=== PATIENT | female | born 1960 | race Caucasian/White ===

== ENCOUNTER 2017-11-20 13:13 | Emergency (ER) | payer BC ==
[2017-11-20 13:35] VITALS: BP 158/70
[2017-11-20] MEDS ORDERED: Fluorescein Sod TOPICAL 0.6* 0.6 MG TEST OPHTHALMIC ONE (13:47)
[2017-11-20] MEDS ORDERED: Tetracaine 0.5% OPTH.SOL 4 ML* 1 DROP BTL LEFT EYE ONE (13:58)
[2017-11-20] MEDS ORDERED: Mupirocin 2% OINT* TUBE TOPICAL ONE (14:12)
--- NOTE | 2017-11-20 14:19 | UC ---
General HPI - HPI Summary HPI Summary: was mowing lawn and got something in the left eye, has been treating lesion on left wrist as a ring worm, getting worse. - History of Current Complaint Chief Complaint: UCEye Stated Complaint: LEFT EYE Time Seen by Provider: 11/20/17 13:51 Hx Obtained From: Patient Onset/Duration: Sudden Onset, Lasting Hours Timing: Constant Onset Severity: Mild Current Severity: Mild Pain Intensity: 2 - Allergy/Home Medications Allergies/Adverse Reactions: Allergies Allergy/AdvReac Type Severity Reaction Status Date / Time influenza virus vaccine, Allergy See Comment Verified 11/20/17 13:27 specific Penicillins Allergy Rash Verified 11/20/17 13:27 Home Medications: Home Medications Conjugated Estrogens VAG CM* [Premarin VAG CREAM*] 1 applic VAGINAL BEDTIME 12/01 [History Confirmed 11/20/17] Estrogen Patch WEEKLY 11/20/17 [History] Progesterone, Micronized [Progesterone] 100 mg PO DAILY 11/20/17 [History Confirmed 11/20/17] PMH/Surg Hx/FS Hx/Imm Hx Previously Healthy: Yes - Surgical History Surgical History: Yes Surgery Procedure, Year, and Place: colon resection - Family History Known Family History: Positive: Hypertension - Social History Alcohol Use: Occasionally Substance Use Type: None Smoking Status (MU): Former Smoker When Did the Patient Quit Smoking/Using Tobacco: 30 years ago Review of Systems Constitutional: Negative Skin: Other - round lesion Eyes: Drainage, Eye Redness, Photophobia ENT: Negative Respiratory: Negative Cardiovascular: Negative Gastrointestinal: Negative Genitourinary: Negative Motor: Negative Neurovascular: Negative Musculoskeletal: Negative Neurological: Negative Psychological: Negative Is Patient Immunocompromised?: No All Other Systems Reviewed And Are Negative: Yes Physical Exam Triage Information Reviewed: Yes Appearance: Well-Appearing, Well-Nourished, Pain Distress Vital Signs: Initial Vital Signs Temp 99.2 F 11/20/17 13:30 Pulse 45 11/20/17 13:30 Resp 14 11/20/17 13:30 BP 158/70 11/20/17 13:30 Pulse Ox 99 11/20/17 13:30 Vital Signs Reviewed: Yes Eyes: Positive: Conjunctiva Inflamed, Discharge ENT Exam: Normal Dental Exam: Normal Neck exam: Normal Respiratory Exam: Normal Respiratory: Positive: Chest non-tender, Lungs clear, Normal breath sounds Cardiovascular Exam: Normal Cardiovascular: Positive: RRR, No Murmur, Pulses Normal Abdominal Exam: Normal Bowel Sounds: Positive: Present Musculoskeletal Exam: Normal Neurological Exam: Normal Psychological Exam: Normal Skin: Positive: significant lesion(s) - quarter sized erythemic ring with a depresses center, appears fluctuant Course/Dx - Course Course Of Treatment: hx obtained, exam performed, meds reviewed, fuloresciene exam performed, abraisions noted, NO FB. I and D of left wrist abscess performed , small amount of bloody drainage. treated for skin infection and corneal abraision - Differential Dx - Multi-Symptom Provider Diagnoses: corneal abraision of right eye. infected skin lesions possible bug bite Discharge - Sign-Out/Discharge Documenting (check all that apply): Discharge/Admit/Transfer - Discharge Plan Condition: Stable Disposition: HOME Patient Education Materials: Corneal Abrasion (ED) Referrals: Sathya Garces MD [Primary Care Provider] - Additional Instructions: 1, Use the eye cream TID for 3 days 2. Use protective eye gear 3. Use the Bactroban twice a day for 7 days 4. Saok in warm soapy water, you can use tea tree in the water as well. 5. FOllow up with [facility] at upcoming appointment if not improving. - Billing Disposition and Condition Condition: STABLE Disposition: Home
== END 2017-11-20 14:33 | disposition home or self-care (01) ==
LOC: UCCORT 13:13
DX: Z88.1 Allergy status to other antibiotic agents (principal); T15.01XA Foreign body in cornea, right eye, initial encounter; X58.XXXA Exposure to other specified factors, initial encounter; Y93.H2 Activity, gardening and landscaping; Y92.9 Unspecified place or not applicable; B99.9 Unspecified infectious disease; L98.9 Disorder of the skin and subcutaneous tissue, unspecified; Z87.891 Personal history of nicotine dependence
CPT/HCPCS: 10060; 99203; A9270-GY; G0463